=== PATIENT | male | born 1935 | race Caucasian/White ===

== ENCOUNTER 2023-03-19 17:00 | Inpatient (IN) | payer OTHER ==
[~2023-03-19] VITALS: Ht 180.3 cm; Wt 81.7 kg
[2023-03-19 16:16] VITALS: BP 152/61
[~2023-03-19 17:00] MED LIST: ACETAMINOPHEN650 M5 PO; ASPIRIN CHEWABL81 MG PO; ATORVASTATIN CA20 M1 PO; CLOPIDOGREL75 MG PO; COLACE100 MG PO; DIVALPROEX SOD125 M1 PO; DONEPEZIL HCL10 MG PO; ESCITALOPRAM OX10 MG PO; Hydralazine Hyd25 MG PO; IMDUR SA30 MG PO; JANUVIA50 MG PO; LISINOPRIL5 MG PO; MELATONIN10 M2 PO; MIRALAX119 GM PO; NEURONTIN300 MG PO; PANTOPRAZOLE SO40 MG PO; PROMACTA75 MG PO; RETACRIT10000 UNIT IJ; VITAMIN D31250 MC1 PO
[2023-03-19 20:00] VITALS: BP 147/81
[2023-03-20 07:35] VITALS: BP 155/104
[2023-03-20 20:29] VITALS: BP 130/60
[2023-03-21 07:37] VITALS: BP 132/88
[2023-03-21 20:31] VITALS: BP 138/62
[2023-03-22 07:29] VITALS: BP 139/47
[2023-03-22 13:00] VITALS: BP 102/40
[2023-03-22 13:23] VITALS: BP 126/52
[2023-03-22 20:00] VITALS: BP 157/52
[2023-03-23 07:41] VITALS: BP 147/92
[2023-03-23 20:00] VITALS: BP 131/70
[2023-03-24 07:41] VITALS: BP 136/50
[2023-03-24 20:00] VITALS: BP 129/62
[2023-03-25 08:00] VITALS: BP 138/72
[2023-03-25 20:00] VITALS: BP 140/62
[2023-03-26 08:00] VITALS: BP 153/62
[2023-03-26 09:25] LABS: POTASSIUM 5.1 mmol/L (3.4-5.1)
[2023-03-26 20:00] VITALS: BP 160/62
[2023-03-27 07:23] LABS: POTASSIUM 4.9 mmol/L (3.4-5.1)
[2023-03-27 07:31] VITALS: BP 146/60
[2023-03-27 17:58] LABS: BILIRUBIN Negative (Negative); BLOOD Negative (Negative); CLARITY Clear (Clear); COLOR Yellow (Yellow); GLUCOSE Trace (Negative); KETONE Negative (Negative); LEUKO ESTERASE Negative (Negative); NITRITE Negative (Negative); UROBILINOGEN 0.2 E.U./dl (0.0-1.0)
[2023-03-27 18:05] LABS: URINE CREATININE RANDOM 28.76 mg/dL
[2023-03-27 18:18] LABS: BACTERIA TRACE; EPITHELIAL CELLS 0-2; RBC 0-2 rbc/hpf (0-2); WBC 0-2 wbc/hpf (0-5)
[2023-03-27 20:00] VITALS: BP 138/68
[2023-03-28 08:00] VITALS: BP 144/68
[2023-03-28 11:53] LABS: BASO % 0.4 % (0.0-1.0); EOS # 0.3 10*3/uL (0.0-0.4); HEMATOCRIT 27.2 % (42.0-52.0); LYMPH # 1.5 10*3/uL (1.3-4.4); LYMPH % 27.6 % (27.0-41.0); MEAN CELL VOLUME 101.1 fl (80.0-94.0); MEAN CORPUSCULAR HGB 33.8 pg (27.0-31.0); MEAN CORPUSCULAR HGB CONC 33.5 g/dl (33.0-37.0); MEAN PLATELET VOLUME 10.5 fl (9.6-12.3); MONO # 0.6 10*3/uL (0.1-1.0); MONO % 11.5 % (3.0-9.0); NEUT # 2.9 10*3/uL (2.3-7.9); NEUT % 54.1 % (47.0-73.0); PLATELET COUNT AUTOMATED 81 10*3/uL (130-400); RED BLOOD COUNT 2.69 10*6/uL (4.50-5.90); RED CELL DISTRI WIDTH 12.6 % (0-14.5); WHITE BLOOD COUNT 5.3 10*3/uL (4.8-10.8)
[2023-03-28 12:18] LABS: POTASSIUM 5.1 mmol/L (3.4-5.1)
[2023-03-28 20:00] VITALS: BP 157/73
[2023-03-29 08:00] VITALS: BP 150/64
[2023-03-29 09:53] LABS: POTASSIUM 4.6 mmol/L (3.4-5.1)
[2023-03-29 20:00] VITALS: BP 177/61
[2023-03-30 07:26] VITALS: BP 146/66
[2023-03-30 20:29] VITALS: BP 112/60
[2023-03-31 07:55] LABS: POTASSIUM 4.2 mmol/L (3.4-5.1)
[2023-03-31 20:00] VITALS: BP 123/64
[2023-04-01 07:40] LABS: BASO % 0.4 % (0.0-1.0); EOS # 0.3 10*3/uL (0.0-0.4); EOS % 5.9 % (1.0-4.0); HEMATOCRIT 28.1 % (42.0-52.0); LYMPH # 1.8 10*3/uL (1.3-4.4); LYMPH % 32.3 % (27.0-41.0); MEAN CELL VOLUME 101.8 fl (80.0-94.0); MEAN CORPUSCULAR HGB 33.7 pg (27.0-31.0); MEAN CORPUSCULAR HGB CONC 33.1 g/dl (33.0-37.0); MEAN PLATELET VOLUME 10.3 fl (9.6-12.3); MONO # 0.5 10*3/uL (0.1-1.0); MONO % 9.3 % (3.0-9.0); NEUT # 2.9 10*3/uL (2.3-7.9); NEUT % 51.7 % (47.0-73.0); PLATELET COUNT AUTOMATED 77 10*3/uL (130-400); RED BLOOD COUNT 2.76 10*6/uL (4.50-5.90); RED CELL DISTRI WIDTH 12.5 % (0-14.5); WHITE BLOOD COUNT 5.6 10*3/uL (4.8-10.8)
[2023-04-01 08:01] LABS: POTASSIUM 4.3 mmol/L (3.4-5.1)
[2023-04-01 08:12] VITALS: BP 149/70
[2023-04-01 20:00] VITALS: BP 113/62
[2023-04-02 08:34] VITALS: BP 151/70
[2023-04-02 15:49] LABS: POTASSIUM 4.9 mmol/L (3.4-5.1)
[2023-04-02 20:00] VITALS: BP 140/65
[2023-04-03 07:47] VITALS: BP 148/74
[2023-04-03 20:00] VITALS: BP 116/60
[2023-04-04 07:16] VITALS: BP 142/86
[2023-04-04 20:00] VITALS: BP 138/80
[2023-04-05 08:05] VITALS: BP 138/79
[2023-04-05 20:00] VITALS: BP 140/72
[2023-04-06 07:47] VITALS: BP 133/53
[2023-04-06 14:04] LABS: POTASSIUM 4.9 mmol/L (3.4-5.1)
[2023-04-06 20:00] VITALS: BP 133/78
[2023-04-07 08:00] VITALS: BP 130/62; BP 144/57
[2023-04-07] MEDS ORDERED: MIRTAZAPINE15 M2 PO (09:35)
[2023-04-07] MEDS ORDERED: QUETIAPINE FUM100 M3 PO (09:35)
[2023-04-07] MEDS ORDERED: QUETIAPINE FUMA50 M1 PO (09:35)
[2023-04-07] MEDS ORDERED: RIVASTIGMINE1 EAC2 T (09:35)
[2023-04-07] MEDS ORDERED: NAMENDA-5 PO (09:35)
== END 2023-04-07 12:14 | disposition hospice, home (50) | DRG 883 ==
LOC: 3N 17:00
PROVIDERS: Family Medicine; Internal Medicine; Internal Medicine Nephrology; Nurse Practitioner; Registered Nurse; ADMIT Psychiatry & Neurology Psychiatry; ATTEND Psychiatry & Neurology Psychiatry
PROC: 0HBRXZZ Excision of Toe Nail, External Approach (ICD-10-PCS; principal; 2023-03-24)
PROC: 0HBNXZZ Excision of Left Foot Skin, External Approach (ICD-10-PCS; 2023-03-24)
PROC: 0HBFXZZ Excision of Right Hand Skin, External Approach (ICD-10-PCS; 2023-03-24)
DX: F63.81 Intermittent explosive disorder (principal); N18.4 Chronic kidney disease, stage 4 (severe); N17.9 Acute kidney failure, unspecified; E11.65 Type 2 diabetes mellitus with hyperglycemia; F33.2 Major depressive disorder, recurrent severe without psychotic features; E44.0 Moderate protein-calorie malnutrition; F02.818 Dementia in other diseases classified elsewhere, unspecified severity, with other behavioral disturbance; Z66 Do not resuscitate; D72.819 Decreased white blood cell count, unspecified; D53.9 Nutritional anemia, unspecified; G30.9 Alzheimer's disease, unspecified; X58.XXXA Exposure to other specified factors, initial encounter; E87.8 Other disorders of electrolyte and fluid balance, not elsewhere classified; S91.209A Unspecified open wound of unspecified toe(s) with damage to nail, initial encounter; S61.011A Laceration without foreign body of right thumb without damage to nail, initial encounter; I12.9 Hypertensive chronic kidney disease with stage 1 through stage 4 chronic kidney disease, or unspecified chronic kidney disease; E11.22 Type 2 diabetes mellitus with diabetic chronic kidney disease; Z90.49 Acquired absence of other specified parts of digestive tract; Z91.040 Latex allergy status; Z82.49 Family history of ischemic heart disease and other diseases of the circulatory system; Z68.25 Body mass index [BMI] 25.0-25.9, adult; Z51.5 Encounter for palliative care; I25.2 Old myocardial infarction; Z82.0 Family history of epilepsy and other diseases of the nervous system; Z79.899 Other long term (current) drug therapy; Y93.89 Activity, other specified; Y92.89 Other specified places as the place of occurrence of the external cause; Y99.8 Other external cause status